=== PATIENT | male | born 1955 | race Caucasian/White ===

== ENCOUNTER 2018-01-16 12:31 | Emergency (ER) | payer BC ==
[2018-01-16 13:22] LABS: ADD MAN DIFF? NO
[2018-01-16 13:31] LABS: WHITE BLOOD COUNT 8.3 10^3/ul (4.8-10.8)
[2018-01-16 13:31] LABS: BASOPHILS % 0.2 % (0.0-2.0); EOSINOPHILS % 0.5 % (0.0-7.0); HEMOGLOBIN 14.2 g/dl (14.0-18.0); LYMPHOCYTES # 1.8 10^3/ul (0.8-2.9); LYMPHOCYTES % 21.3 % (15.0-51.0); MEAN CORPUSCULAR HEMOGLOBIN 28.2 pg (29.0-33.0); MEAN CORPUSCULAR HGB CONC 33.8 g/dl (32.0-37.0); MEAN CORPUSCULAR VOLUME 83.5 fl (82.0-101.0); MEAN PLATELET VOLUME 9.5 fl (7.4-10.4); MONOCYTE # 0.5 10^3/ul (0.3-0.9); NEUTROPHILS % 71.6 % (39.0-77.0); PLATELET COUNT 161 10^3/UL (140-415); RED BLOOD COUNT 5.03 10^6/ul (4.70-6.10); RED CELL DISTRIBUTION WIDTH 13.2 % (11.5-14.5)
[2018-01-16] MEDS: ASPIRIN 81 MG TAB PO (13:43)
[2018-01-16 13:49] LABS: ANION GAP 10 (5-13); BLOOD UREA NITROGEN 12 mg/dl (7-20); CALCIUM 9.3 mg/dl (8.4-10.2); CARBON DIOXIDE 24 mmol/L (21-31); CHLORIDE 104 mmol/L (97-110); CHOLESTEROL 198 mg/dl (100-200); CREATININE 0.68 mg/dl (0.61-1.24); Estimated GFR > 60 mL/min (>60); GLUCOSE 145 mg/dl (70-220); HDL CHOLESTEROL 28 mg/dl (30-78); LDL CHOLESTEROL,CALCULATED 130 mg/dl; POTASSIUM 3.9 mmol/L (3.5-5.1); SODIUM 138 mmol/L (135-144); TRIGLYCERIDES 202 mg/dl (0-149)
[2018-01-16 13:50] LABS: INR 0.91; PROTIME 12.3 Sec (11.9-14.9)
[2018-01-16 13:51] LABS: PARTIAL THROMBOPLASTIN TIME 29.2 Sec (23.0-35.0)
[2018-01-16 13:54] LABS: ADD UMIC YES; UR ASCORBIC ACID NEGATIVE (NEGATIVE); UR BILIRUBIN (Dip) NEGATIVE (NEGATIVE); UR BLOOD (Dip) 1+ mg/dL (NEGATIVE); UR CLARITY CLEAR (CLEAR); UR COLOR YELLOW (YELLOW); UR GLUCOSE (Dip) 3+ mg/dL (NEGATIVE); UR KETONES (Dip) NEGATIVE (NEGATIVE); UR LEUKOCYTE ESTERASE (Dip) NEGATIVE Leu/ul (NEGATIVE); UR MUCUS FEW /HPF (NONE SEEN); UR NITRITE (Dip) NEGATIVE (NEGATIVE); UR RBC 1 /HPF (0-5); UR SPECIFIC GRAVITY (Dip) 1.018 (1.003-1.030); UR TOTAL PROTEIN (Dip) NEGATIVE (NEGATIVE); UR UROBILINOGEN (Dip) NEGATIVE (NEGATIVE); UR WBC 1 /HPF (0-5)
[2018-01-16 14:01] LABS: TROPONIN-I < 0.012 ng/ml (0.000-0.120)
[2018-01-16 14:08] LABS: AMPHETAMINE/METHAMPHETAMINE Negative (NEGATIVE); BARBITURATES Negative (NEGATIVE); BENZODIAZEPINES Negative (NEGATIVE); CANNABINOIDS Negative (NEGATIVE); COCAINE Negative (NEGATIVE); OPIATES Negative (NEGATIVE)
[2018-01-16 14:27] LABS: HEMOGLOBIN A1C 8.4 % (0-5.9)
== END 2018-01-16 15:23 | disposition home or self-care (01) ==
LOC: E/R 12:31
DX: G51.0 Bell's palsy (principal); E11.65 Type 2 diabetes mellitus with hyperglycemia; E11.21 Type 2 diabetes mellitus with diabetic nephropathy; E78.1 Pure hyperglyceridemia; F17.210 Nicotine dependence, cigarettes, uncomplicated; I50.9 Heart failure, unspecified; Z79.4 Long term (current) use of insulin
CPT/HCPCS: 36415; 70450; 71045; 80048; 80061; 80307; 81001; 83036; 84484; 85025; 85610; 85730; 93005; 99285-25

== ENCOUNTER 2018-01-25 21:04 | Inpatient (IN) | payer BC ==
[2018-01-25 22:46] LABS: ADD MAN DIFF? NO
[2018-01-25 22:47] LABS: BASOPHILS % 0.2 % (0.0-2.0); EOSINOPHILS % 0.2 % (0.0-7.0); HEMATOCRIT 43.2 % (42.0-52.0); HEMOGLOBIN 14.6 g/dl (14.0-18.0); LYMPHOCYTES % 16.3 % (15.0-51.0); MEAN CORPUSCULAR HEMOGLOBIN 28.7 pg (29.0-33.0); MEAN CORPUSCULAR HGB CONC 33.8 g/dl (32.0-37.0); MEAN PLATELET VOLUME 9.4 fl (7.4-10.4); MONOCYTE # 0.7 10^3/ul (0.3-0.9); MONOCYTES % 5.8 % (0.0-11.0); NEUTROPHIL # 9.3 10^3/ul (1.6-7.5); NEUTROPHILS % 76.6 % (39.0-77.0); PLATELET COUNT 146 10^3/UL (140-415); RED BLOOD COUNT 5.08 10^6/ul (4.70-6.10); RED CELL DISTRIBUTION WIDTH 13.2 % (11.5-14.5)
[2018-01-25 22:47] LABS: WHITE BLOOD COUNT 12.1 10^3/ul (4.8-10.8)
[2018-01-25 23:08] LABS: ALANINE AMINOTRANSFERASE 32 IU/L (13-69); ALBUMIN 4.2 g/dl (3.3-4.9); ALBUMIN/GLOBULIN RATIO 1.68; ALKALINE PHOSPHATASE 74 IU/L (42-121); ANION GAP 10 (5-13); ASPARTATE AMINO TRANSFERASE 26 IU/L (15-46); BILIRUBIN,INDIRECT 0.3 mg/dl (0-1.1); BILIRUBIN,TOTAL 0.3 mg/dl (0.2-1.3); BLOOD UREA NITROGEN 15 mg/dl (7-20); CALCIUM 9.3 mg/dl (8.4-10.2); CARBON DIOXIDE 24 mmol/L (21-31); CHLORIDE 100 mmol/L (97-110); CREATININE 0.49 mg/dl (0.61-1.24); Estimated GFR > 60 mL/min (>60); GLUCOSE 396 mg/dl (70-220); SODIUM 134 mmol/L (135-144); TOTAL PROTEIN 6.7 g/dl (6.1-8.1)
[2018-01-25 23:16] LABS: B-TYPE NATRIURETIC PEPTIDE 299 PG/ML (0-125)
[2018-01-25 23:20] LABS: TROPONIN-I 0.023 ng/ml (0.000-0.120)
[2018-01-26] MEDS ORDERED: hydrALAzine 20 MG INJ IV
[2018-01-26] MEDS ORDERED: INSULIN GLULISINE SQ
[2018-01-26] MEDS: ACCU-CHEK XX (02:15)
[2018-01-26] MEDS: traMADol 50 MG TAB PO ×3 (02:58→20:20)
[2018-01-26 03:51] LABS: ALANINE AMINOTRANSFERASE 15 IU/L (13-69); ALBUMIN 3.5 g/dl (3.3-4.9); ALBUMIN/GLOBULIN RATIO 1.12; ALKALINE PHOSPHATASE 103 IU/L (42-121); ANION GAP 7 (5-13); ASPARTATE AMINO TRANSFERASE 31 IU/L (15-46); BILIRUBIN,INDIRECT 0.3 mg/dl (0-1.1); BILIRUBIN,TOTAL 0.3 mg/dl (0.2-1.3); BLOOD UREA NITROGEN 25 mg/dl (7-20); CALCIUM 8.5 mg/dl (8.4-10.2); CARBON DIOXIDE 19 mmol/L (21-31); CHLORIDE 112 mmol/L (97-110); CREATININE 0.96 mg/dl (0.61-1.24); Estimated GFR > 60 mL/min (>60); GLUCOSE 379 mg/dl (70-220); MAGNESIUM 1.1 mg/dl (1.7-2.5); SODIUM 138 mmol/L (135-144); TOTAL PROTEIN 6.6 g/dl (6.1-8.1)
[2018-01-26 03:54] LABS: POTASSIUM 4.8 mmol/L (3.5-5.1)
[2018-01-26] MEDS: PANTOPRAZOLE (EC) 40 MG TAB PO (05:13)
[2018-01-26 05:34] LABS: ADD MAN DIFF? NO
[2018-01-26 05:41] LABS: BASOPHILS % 0.2 % (0.0-2.0); EOSINOPHILS # 0.1 10^3/ul (0.0-0.5); EOSINOPHILS % 0.6 % (0.0-7.0); HEMATOCRIT 42.9 % (42.0-52.0); HEMOGLOBIN 14.5 g/dl (14.0-18.0); LYMPHOCYTES # 2.8 10^3/ul (0.8-2.9); LYMPHOCYTES % 24.2 % (15.0-51.0); MEAN CORPUSCULAR HEMOGLOBIN 28.8 pg (29.0-33.0); MEAN CORPUSCULAR HGB CONC 33.8 g/dl (32.0-37.0); MEAN CORPUSCULAR VOLUME 85.1 fl (82.0-101.0); MONOCYTE # 0.8 10^3/ul (0.3-0.9); NEUTROPHIL # 7.7 10^3/ul (1.6-7.5); NEUTROPHILS % 67.2 % (39.0-77.0); PLATELET COUNT 128 10^3/UL (140-415); RED BLOOD COUNT 5.04 10^6/ul (4.70-6.10); RED CELL DISTRIBUTION WIDTH 13.3 % (11.5-14.5)
[2018-01-26 05:41] LABS: WHITE BLOOD COUNT 11.4 10^3/ul (4.8-10.8)
[2018-01-26] MEDS: ACETAMINOPHEN 325 MG TAB PO (05:45)
[2018-01-26 05:59] LABS: HEMOGLOBIN A1C 9.2 % (0-5.9)
[2018-01-26 06:04] LABS: CREATINE KINASE < 20 IU/L (23-200)
[2018-01-26 06:13] LABS: CK-MB 0.87 ng/ml (0.0-2.4); TROPONIN-I < 0.012 ng/ml (0.000-0.120)
[2018-01-26] MEDS: MAGNESIUM SULFATE 2 GM/50 ML 50 ML IVPB (06:13)
[2018-01-26] MEDS: TOLTERODINE (SR) 2 MG CAP PO (08:08)
[2018-01-26] MEDS: FLUTICASONE/VILANTEROL 200-25 INH DEVICE INH (08:08)
[2018-01-26] MEDS: BUPROPION (XL) 150 MG TAB PO (08:08)
[2018-01-26] MEDS: hydrALAzine 20 MG INJ IV ×2 (08:08→16:33)
[2018-01-26] MEDS: GABAPENTIN 300 MG CAP PO ×2 (08:08→20:20)
[2018-01-26] MEDS: INSULIN ASPART [NOVOLOG] 3 ML PEN SC ×5 (08:21→20:28)
[2018-01-26] MEDS: PRASUGREL HYDROCHLORIDE 10 MG TABLET PO (08:52)
[2018-01-26 09:44] LABS: CK-MB 1.07 ng/ml (0.0-2.4); TROPONIN-I 0.026 ng/ml (0.000-0.120)
[2018-01-26 09:45] LABS: CREATINE KINASE < 20 IU/L (23-200)
[2018-01-26] MEDS: ENOXAPARIN 30 MG/0.3 ML SYG SC (12:30)
[2018-01-26] MEDS: NIFEdipine 10 MG CAP PO ×2 (18:27→23:50)
[2018-01-26] MEDS: ATORVASTATIN 20 MG TAB PO (20:20)
[2018-01-26] MEDS: TAMSULOSIN (SR) 0.4 MG CAP PO (20:20)
[2018-01-26] MEDS: INSULIN GLARGINE [LANTus] (100 UNITS/ML) SYG SC (20:29)
[2018-01-26] MEDS ORDERED: NON-FORMULARY/PATIENT OWN MED (Insulin Degludec (Tresiba Flextouch U-100) 40 UNIT) SQ (21:00)
[2018-01-26] MEDS ORDERED: HYDROCODONE/APAP (10/325) TAB PO (22:30)
[2018-01-26 22:47] LABS: ADD UMIC YES; UR ASCORBIC ACID NEGATIVE (NEGATIVE); UR BILIRUBIN (Dip) NEGATIVE (NEGATIVE); UR BLOOD (Dip) 1+ mg/dL (NEGATIVE); UR CLARITY CLEAR (CLEAR); UR COLOR STRAW (YELLOW); UR GLUCOSE (Dip) 3+ mg/dL (NEGATIVE); UR KETONES (Dip) TRACE mg/dL (NEGATIVE); UR LEUKOCYTE ESTERASE (Dip) NEGATIVE Leu/ul (NEGATIVE); UR NITRITE (Dip) NEGATIVE (NEGATIVE); UR RBC 1 /HPF (0-5); UR SPECIFIC GRAVITY (Dip) 1.027 (1.003-1.030); UR TOTAL PROTEIN (Dip) NEGATIVE (NEGATIVE); UR UROBILINOGEN (Dip) NEGATIVE (NEGATIVE); UR WBC 1 /HPF (0-5)
[2018-01-26 23:08] LABS: AMPHETAMINE/METHAMPHETAMINE Negative (NEGATIVE); BARBITURATES Negative (NEGATIVE); BENZODIAZEPINES Negative (NEGATIVE); CANNABINOIDS Negative (NEGATIVE); COCAINE Negative (NEGATIVE); OPIATES Negative (NEGATIVE)
[2018-01-26] MEDS: ZOLPIDEM 5 MG TAB PO (23:49)
[2018-01-27] MEDS: DEXTROSE 5%-0.45% NACL 1,000 ML IV (00:11)
[2018-01-27] MEDS: CROMOLYN 4% 26ML NAS INH NASAL ×2 (02:20→07:59)
[2018-01-27] MEDS: ACCU-CHEK XX (02:25)
[2018-01-27] MEDS: NIFEdipine 10 MG CAP PO (05:15)
[2018-01-27] MEDS: PANTOPRAZOLE (EC) 40 MG TAB PO (05:15)
[2018-01-27 06:16] LABS: ADD MAN DIFF? NO
[2018-01-27 06:27] LABS: BASOPHILS % 0.3 % (0.0-2.0); EOSINOPHILS # 0.1 10^3/ul (0.0-0.5); EOSINOPHILS % 0.8 % (0.0-7.0); HEMATOCRIT 39.6 % (42.0-52.0); HEMOGLOBIN 13.3 g/dl (14.0-18.0); LYMPHOCYTES # 2.5 10^3/ul (0.8-2.9); LYMPHOCYTES % 22.4 % (15.0-51.0); MEAN CORPUSCULAR HEMOGLOBIN 28.4 pg (29.0-33.0); MEAN CORPUSCULAR HGB CONC 33.6 g/dl (32.0-37.0); MEAN CORPUSCULAR VOLUME 84.6 fl (82.0-101.0); MEAN PLATELET VOLUME 9.6 fl (7.4-10.4); MONOCYTE # 0.8 10^3/ul (0.3-0.9); MONOCYTES % 6.9 % (0.0-11.0); NEUTROPHIL # 7.8 10^3/ul (1.6-7.5); PLATELET COUNT 132 10^3/UL (140-415); RED BLOOD COUNT 4.68 10^6/ul (4.70-6.10); RED CELL DISTRIBUTION WIDTH 13.8 % (11.5-14.5)
[2018-01-27 06:27] LABS: WHITE BLOOD COUNT 11.2 10^3/ul (4.8-10.8)
[2018-01-27 07:00] LABS: CREATINE KINASE < 20 IU/L (23-200); INR 0.92; PROTIME 12.4 Sec (11.9-14.9)
[2018-01-27 07:04] LABS: CHOL/HDL RATIO 4.4 RATIO; HDL CHOLESTEROL 35 mg/dl (30-78); LDL CHOLESTEROL,CALCULATED 91 mg/dl; TRIGLYCERIDES 154 mg/dl (0-149)
[2018-01-27 07:04] LABS: CHOLESTEROL 157 mg/dl (100-200)
[2018-01-27 07:06] LABS: ALANINE AMINOTRANSFERASE 28 IU/L (13-69); ALBUMIN 3.5 g/dl (3.3-4.9); ALBUMIN/GLOBULIN RATIO 1.34; ALKALINE PHOSPHATASE 67 IU/L (42-121); ANION GAP 7 (5-13); ASPARTATE AMINO TRANSFERASE 13 IU/L (15-46); BILIRUBIN,INDIRECT 0.6 mg/dl (0-1.1); BILIRUBIN,TOTAL 0.6 mg/dl (0.2-1.3); BLOOD UREA NITROGEN 14 mg/dl (7-20); CALCIUM 8.8 mg/dl (8.4-10.2); CARBON DIOXIDE 24 mmol/L (21-31); CHLORIDE 105 mmol/L (97-110); CREATININE 0.54 mg/dl (0.61-1.24); Estimated GFR > 60 mL/min (>60); GLUCOSE 265 mg/dl (70-220); SODIUM 136 mmol/L (135-144); TOTAL PROTEIN 6.1 g/dl (6.1-8.1)
[2018-01-27 07:11] LABS: POTASSIUM 3.8 mmol/L (3.5-5.1)
[2018-01-27 07:17] LABS: CK-MB 0.64 ng/ml (0.0-2.4)
[2018-01-27] MEDS: INSULIN ASPART [NOVOLOG] 3 ML PEN SC ×7 (07:25→20:16)
[2018-01-27] MEDS: ENOXAPARIN 30 MG/0.3 ML SYG SC (08:35)
[2018-01-27] MEDS ORDERED: LIDOCAINE 2% (MDV) 20 ML INJ (08:42)
[2018-01-27] MEDS ORDERED: HEPARIN 1000 UNITS/ML 10 ML INJ (08:42)
[2018-01-27] MEDS ORDERED: NITROGLYCERIN (IC) 100 MCG/ML INJ (08:42)
[2018-01-27] MEDS ORDERED: VERAPAMIL 5 MG INJ (08:42)
[2018-01-27] MEDS ORDERED: FENTAnyl 50 MCG/ML VIAL ×2 (08:42→09:55)
[2018-01-27] MEDS ORDERED: IODIXANOL LOCM 100 ML BTL (08:42)
[2018-01-27] MEDS ORDERED: MIDAZOLAM 1 MG/ML 2 ML INJ ×2 (08:42→09:55)
[2018-01-27] MEDS: PRASUGREL HYDROCHLORIDE 10 MG TABLET PO (09:00)
[2018-01-27] MEDS ORDERED: ASPIRIN 325 MG TAB (10:39)
[2018-01-27] MEDS ORDERED: PRASUGREL HYDROCHLORIDE 10 MG TABLET PO (10:43)
[2018-01-27] MEDS ORDERED: ACETAMINOPHEN 325 MG TAB PO (11:00)
[2018-01-27] MEDS: OXYCODONE/ACETAMINOPHEN (5/325) TAB PO ×2 (11:45→18:00)
[2018-01-27] MEDS: morphine 2 MG INJ IV (11:49)
[2018-01-27] MEDS: GABAPENTIN 300 MG CAP PO ×2 (15:35→20:12)
[2018-01-27] MEDS: SOD CHLORIDE 0.9% 1,000 ML IV (15:38)
[2018-01-27] MEDS: FLUTICASONE/VILANTEROL 200-25 INH DEVICE INH (16:00)
[2018-01-27] MEDS: TOLTERODINE (SR) 2 MG CAP PO (17:54)
[2018-01-27] MEDS: BUPROPION (XL) 150 MG TAB PO (17:54)
[2018-01-27] MEDS: ATORVASTATIN 20 MG TAB PO (20:12)
[2018-01-27] MEDS: TAMSULOSIN (SR) 0.4 MG CAP PO (20:12)
[2018-01-27] MEDS: DOCUSATE SODIUM 100 MG CAP PO (20:13)
[2018-01-27] MEDS: INSULIN GLARGINE [LANTus] (100 UNITS/ML) SYG SC (20:14)
[2018-01-28] MEDS: ACCU-CHEK XX (02:00)
[2018-01-28] MEDS: OXYCODONE/ACETAMINOPHEN (5/325) TAB PO ×2 (04:10→15:39)
[2018-01-28 05:48] LABS: ADD MAN DIFF? NO
[2018-01-28 06:00] LABS: WHITE BLOOD COUNT 8.8 10^3/ul (4.8-10.8)
[2018-01-28 06:00] LABS: BASOPHILS % 0.3 % (0.0-2.0); EOSINOPHILS # 0.1 10^3/ul (0.0-0.5); HEMATOCRIT 37.9 % (42.0-52.0); HEMOGLOBIN 12.7 g/dl (14.0-18.0); LYMPHOCYTES # 1.5 10^3/ul (0.8-2.9); LYMPHOCYTES % 17.4 % (15.0-51.0); MEAN CORPUSCULAR HEMOGLOBIN 28.5 pg (29.0-33.0); MEAN CORPUSCULAR HGB CONC 33.5 g/dl (32.0-37.0); MEAN CORPUSCULAR VOLUME 85.2 fl (82.0-101.0); MEAN PLATELET VOLUME 9.5 fl (7.4-10.4); MONOCYTE # 0.6 10^3/ul (0.3-0.9); MONOCYTES % 6.8 % (0.0-11.0); NEUTROPHIL # 6.5 10^3/ul (1.6-7.5); NEUTROPHILS % 73.9 % (39.0-77.0); PLATELET COUNT 121 10^3/UL (140-415); RED BLOOD COUNT 4.45 10^6/ul (4.70-6.10); RED CELL DISTRIBUTION WIDTH 13.4 % (11.5-14.5)
[2018-01-28] MEDS: PANTOPRAZOLE (EC) 40 MG TAB PO (06:13)
[2018-01-28 06:26] LABS: CREATINE KINASE < 20 IU/L (23-200)
[2018-01-28 06:53] LABS: ALANINE AMINOTRANSFERASE 32 IU/L (13-69); ALBUMIN 3.1 g/dl (3.3-4.9); ALBUMIN/GLOBULIN RATIO 1.55; ALKALINE PHOSPHATASE 62 IU/L (42-121); ANION GAP 9 (5-13); ASPARTATE AMINO TRANSFERASE 14 IU/L (15-46); BILIRUBIN,INDIRECT 0.5 mg/dl (0-1.1); BILIRUBIN,TOTAL 0.5 mg/dl (0.2-1.3); BLOOD UREA NITROGEN 12 mg/dl (7-20); CALCIUM 8.6 mg/dl (8.4-10.2); CARBON DIOXIDE 26 mmol/L (21-31); CHLORIDE 103 mmol/L (97-110); CREATININE 0.54 mg/dl (0.61-1.24); Estimated GFR > 60 mL/min (>60); GLUCOSE 208 mg/dl (70-220); MAGNESIUM 1.8 mg/dl (1.7-2.5); SODIUM 138 mmol/L (135-144); TOTAL PROTEIN 5.1 g/dl (6.1-8.1)
[2018-01-28] MEDS: INSULIN ASPART [NOVOLOG] 3 ML PEN SC ×6 (08:35→18:27)
[2018-01-28] MEDS: DOCUSATE SODIUM 100 MG CAP PO (08:39)
[2018-01-28] MEDS: GABAPENTIN 300 MG CAP PO (08:40)
[2018-01-28] MEDS: BUPROPION (XL) 150 MG TAB PO (08:41)
[2018-01-28] MEDS: ASPIRIN (EC) 81 MG TAB PO (08:41)
[2018-01-28] MEDS: FLUTICASONE/VILANTEROL 200-25 INH DEVICE INH (09:00)
[2018-01-28] MEDS: PRASUGREL HYDROCHLORIDE 10 MG TABLET PO (11:56)
[2018-01-28] MEDS: TOLTERODINE (SR) 2 MG CAP PO (11:56)
== END 2018-01-28 19:45 | disposition home or self-care (01) | DRG 247 ==
LOC: E/R 21:04 → TEL 23:40 → ICU 01-27 15:19
PROVIDERS: Internal Medicine
PROC: 027034Z Dilation of Coronary Artery, One Artery with Drug-eluting Intraluminal Device, Percutaneous Approach (ICD-10-PCS; principal; 2018-01-27 08:20)
PROC: 02C03ZZ Extirpation of Matter from Coronary Artery, One Artery, Percutaneous Approach (ICD-10-PCS; 2018-01-27 08:20)
PROC: 4A023N7 Measurement of Cardiac Sampling and Pressure, Left Heart, Percutaneous Approach (ICD-10-PCS; 2018-01-27 08:20)
PROC: B2011ZZ Plain Radiography of Multiple Coronary Arteries using Low Osmolar Contrast (ICD-10-PCS; 2018-01-27 08:20)
DX: I25.10 Atherosclerotic heart disease of native coronary artery without angina pectoris (principal); I24.9 Acute ischemic heart disease, unspecified; Z95.5 Presence of coronary angioplasty implant and graft; G51.0 Bell's palsy; I16.0 Hypertensive urgency; E78.5 Hyperlipidemia, unspecified; J44.9 Chronic obstructive pulmonary disease, unspecified; E11.9 Type 2 diabetes mellitus without complications; G47.30 Sleep apnea, unspecified; N40.0 Benign prostatic hyperplasia without lower urinary tract symptoms; E66.9 Obesity, unspecified; Z68.32 Body mass index [BMI] 32.0-32.9, adult; Z72.0 Tobacco use; D64.9 Anemia, unspecified
CPT/HCPCS: 36415; 71045; 72040; 80053; 80061; 80307; 81001; 82550; 82553; 82962; 83036; 83735; 83880; 84443; 84484; 85025; 85610; 86850; 86900; 86901; 86920; 87081; 92920; 93005; 93458; 99285-25; G0378